=== PATIENT | male | born 1990 | race Two or more races ===

== ENCOUNTER 2020-07-29 13:44 | Emergency (ER) | payer OTHER ==
[~2020-07-29] VITALS: Ht 172.7 cm; Wt 124.7 kg
[2020-07-29] MEDS ORDERED: HYDR-3976 GT (15:18)
[2020-07-29 15:29] VITALS: BP 138/92
== END 2020-07-29 15:31 | disposition home or self-care (01) ==
LOC: ER 13:58
DX: M25.561 Pain in right knee (principal)
CPT/HCPCS: 73564-TC